=== PATIENT | female | born 1965 | race Hispanic/Latino ===

== ENCOUNTER 2016-06-03 20:32 | Emergency (ER) | payer OTHER ==
[~2016-06-03] VITALS: Ht 152.4 cm; Wt 81.6 kg
[~2016-06-03 20:32] MED LIST: ADVAIR 250-501 EACH INH; ANUSOL-HC30 GM TOP; AQUAPHOR396 GM TOP; COLACE100 M1 PO; COMBIVENT RESPIM4 GM INH; HYDROCORTISONE25 M2 RC; KEFLEX500 M1 PO; LOPERAMIDE2 M2 PO; MAGNESIUM OXID400 M1 PO; METFORMIN HCL500 M3 PO; NICOTINE LOZENGE2 MG PO; OXYCODONE HCL5 M1 PO; PERCOCET 5-3251 EACH PO; PHENAZOPYRIDIN200 M3 PO; PREDNISONE10 M2 PO; PROAIR HFA8.5 GM INH; SENNA8.6 M3 PO; SILVADENE20 GM TOP; SPIRIVA18 MCG INH
[2016-06-03 20:35] VITALS: BP 126/79
--- NOTE | 2016-06-03 20:40 | ED DYSPNEA/ASTHMA COMPLAINT ---
History of Present Illness General Chief Complaint: Dyspnea (COPD, CHF, Other) Stated Complaint: "DIFF.BREATHING, HX ASTHMA, SPO2 98%" Source: patient, family Exam Limitations: no limitations Vital Signs & Intake/Output Vital Signs & Intake/Output Vital Signs Date Time Temp Pulse Resp B/P Pulse O2 O2 Flow FiO2 Ox Delivery Rate 06/03 2034 96.1 87 18 126/79 98 Room Air ED Intake and Output 06/04 0000 06/03 1200 Intake Total Output Total Balance Patient 180 lb Weight Allergies Coded Allergies: No Known Allergies (07/31/15) NO ALLERGIES PER [facility] IN [facility] AT 0759 ON 07/31/15 ([facility]) Reconcile Medications Albuterol Sulfate (Proair Hfa) 8.5 GM HFA.AER.AD 2 PUF INH Q4-6 PRN PRN RESPIRATORY (Reported) Albuterol Sulfate (Proventil Hfa) 90 MCG HFA.AER.AD 2 PUF INH Q4 asthma/wheeze Amoxicillin/Potassium Clav (Augmentin 875-125 Tablet) 875 MG-125 MG TABLET 1 TAB PO BID bronchitis Ipratropium/Albuterol Sulfate (Combivent Respimat Inhal [place]) 4 GM MIST.INHAL 1 Actuation INH Q6 COPD Prednisone 50 MG TABLET 1 TAB PO DAILY asthma, bronchitis Tiotropium [place] (Spiriva) 18 MCG CAP.W.DEV 1 CAP INH DAILY BREATHING PROBLEMS (Reported) Triage Nurses Notes Reviewed? yes Onset: Gradual Duration: day(s): Timing: recent history Severity: moderate Activities at Onset: cigarette smoking Prior Episodes/Possible Cause: occasional episodes Modifying Factors: Improves With: other (improved w/ albuterol). Associated Symptoms: cough, wheezing HPI: 50 yo woman h/o smoking and asthma presents with 1 day history of cough wheezing or phlegm sinus congestion. She has no fever chills chest pain shortness of breath. She has been taking albuterol puffers with only moderate improvement. She notes that this evening the wheezing got worse. She came in for further evaluation. Past History Travel History Traveled to [place] past 21 day No Medical History Any Pertinent Medical History? 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 No Review of Systems Review of Systems Constitutional: Reports: no symptoms. EENTM: Reports: no symptoms. Respiratory: Reports: no symptoms. Cardiovascular: Reports: no symptoms. GI: Reports: no symptoms. Genitourinary: Reports: no symptoms. Musculoskeletal: Reports: no symptoms. Skin: Reports: no symptoms. Neurological/Psychological: Reports: no symptoms. Hematologic/Endocrine: Reports: no symptoms. Immunologic/Allergic: Reports: no symptoms. All Other Systems: Reviewed and Negative Physical Exam Physical Exam General Appearance: well developed/nourished, alert, awake, comfortable, mild distress Head: atraumatic, normal appearance Eyes: Bilateral: normal appearance. Ears, Nose, Throat: normal pharynx, normal ENT inspection Neck: normal inspection, supple, full range of motion Respiratory: wheezing Cardiovascular: regular rate/rhythm Gastrointestinal: normal bowel sounds, soft, non-tender Extremities: normal inspection, normal capillary refill, normal range of motion Neurologic/Psych: no motor/sensory deficits, awake, alert, oriented x 3 Skin: intact, normal color, warm/dry Core Measures ACS in differential dx? No Severe Sepsis Present: No Septic Shock Present: No Progress Differential Diagnosis: asthma, bronchitis, COPD Plan of Care: Patient given Augmentin, Decadron, DuoNeb. Afterwards, she felt better. Her lung exam is much improved with nearly clear lungs. I prescribed her Augmentin, prednisone for 5 days, and renewed her albuterol inhaler. Of note, upon inspection of her albuterol inhaler, it appears to be nearly empty. Initial ED EKG: none Departure Departure Disposition: HOME OR SELF CARE Condition: Stable Clinical Impression Primary Impression: Bronchitis Secondary Impressions: Bronchospasm Referrals: PATIENT HAS NO PRIMARY CARE DR (PCP/Family) Departure Forms: Customer Survey General Discharge Information Prescriptions: Current Visit Scripts Prednisone 1 TAB PO DAILY #5 TAB Amoxicillin/Potassium Clav (Augmentin 875-125 Tablet) 1 TAB PO BID #20 TAB Albuterol Sulfate (Proventil Hfa) 2 PUF INH Q4 #1 INHAL Ref 1 Critical Care Note Critical Care Note Critical Care Time: non-applicable
[2016-06-03] MEDS ORDERED: PROVENTIL HFA6.7 GM INH (21:47)
[2016-06-03] MEDS ORDERED: PREDNISONE50 M1 PO (21:47)
[2016-06-03] MEDS ORDERED: AUGMENTIN 875-1 EACH PO (21:47)
--- NOTE | 2016-06-03 21:51 | RADIOLOGY REPORT ---
EXAMINATION: XR CHEST CLINICAL INFORMATION: Dyspnea. COMPARISON: CTA chest 07/31/2015. TECHNIQUE: PA and lateral views of the chest were obtained. FINDINGS: The lungs are well-expanded and clear without focal airspace consolidation. No pleural effusions or pneumothoraces are identified. Cardiomediastinal contours are within normal limits. Soft tissues are unremarkable. No acute osseous abnormality is identified. IMPRESSION: No acute cardiopulmonary abnormality.
== END 2016-06-03 22:20 ==
LOC: ERH 20:32
DX: J40 Bronchitis, not specified as acute or chronic (principal); F17.210 Nicotine dependence, cigarettes, uncomplicated
CPT/HCPCS: 1263; J3490

== ENCOUNTER 2016-09-05 23:11 | Emergency (ER) | payer OTHER ==
[~2016-09-05] VITALS: Ht 149.9 cm; Wt 79.8 kg
[~2016-09-05 23:11] MED LIST changes: +AUGMENTIN 875-1 EACH PO; +PREDNISONE50 M1 PO; +PROVENTIL HFA6.7 GM INH
--- NOTE | 2016-09-05 23:59 | ED GENERAL ADULT ---
See Addendum History of Present Illness General Chief Complaint: Headache Stated Complaint: LEIVA S/P FALL DENIES LOC Source: patient Exam Limitations: no limitations Vital Signs & Intake/Output Vital Signs & Intake/Output Vital Signs Date Time Temp Pulse Resp B/P B/P Pulse O2 O2 Flow FiO2 Mean Ox Delivery Rate 09/05 2347 Room Air 09/05 2338 98.2 88 18 132/88 96 Room Air ED Intake and Output 09/06 0000 09/05 1200 Intake Total 0 Output Total Balance 0 Intake, Oral 0 Patient 176 lb Weight Allergies Coded Allergies: No Known Allergies (07/31/15) NO ALLERGIES PER [facility] IN [facility] AT 0759 ON 07/31/15 ([facility]) Reconcile Medications Albuterol Sulfate (Proair Hfa) 8.5 GM HFA.AER.AD 2 PUF INH Q4-6 PRN PRN RESPIRATORY (Reported) Albuterol Sulfate (Proventil Hfa) 90 MCG HFA.AER.AD 2 PUF INH Q4 asthma/wheeze Amoxicillin/Potassium Clav (Augmentin 875-125 Tablet) 875 MG-125 MG TABLET 1 TAB PO BID bronchitis Ipratropium/Albuterol Sulfate (Combivent Respimat Inhal [place]) 4 GM MIST.INHAL 1 Actuation INH Q6 COPD Prednisone 50 MG TABLET 1 TAB PO DAILY asthma, bronchitis Tiotropium [place] (Spiriva) 18 MCG CAP.W.DEV 1 CAP INH DAILY BREATHING PROBLEMS (Reported) Triage Note: PT TO ED C/O HEADACHE, BACK PAIN, LEFT LEG PAIN S/P TRIP 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 FELL BACKWARDS, HITTING HEAD. "SAW STARS" FELT DIZZY WHEN SHE FIRST STOOD UP, DENIES AT THIS TIME. +NAUSEA DENIES BLOOD THINNERS Triage Nurses Notes Reviewed? yes HPI: 51-year-old female with a past medical history of asthma, diabetes, hyperlipidemia, ovarian cancer presenting with posterior headache, neck pain, back pain, lightheadedness, nausea status post mechanical fall about 3.5 hours prior to arrival. Patient was walking outside and slipped and fell backwards, striking posterior head and neck and back against pavement. Denies loss of consciousness, vomiting, visual changes, confusion, altered mental status. No anticoagulation. (KARON GARCIA,EUGENIO) Past History Travel History Traveled to [place] past 21 day No Medical History Any Pertinent Medical History? 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 No (EUGENIO BRANTLEY PA-C) Review of Systems Review of Systems Constitutional: Reports: no symptoms. Respiratory: Reports: no symptoms. Cardiovascular: Reports: no symptoms. GI: Reports: nausea. Denies: abdominal pain, diarrhea, vomiting. Musculoskeletal: Reports: back pain, neck pain. Neurological/Psychological: Reports: headache, other (light headedness). Denies: confusion, numbness, tingling, tremors. (EUGENIO BRANTLEY PA-C) Physical Exam Physical Exam General Appearance: well developed/nourished, no apparent distress Head: atraumatic, normal appearance Ears, Nose, Throat: normal ENT inspection Neck: tender midline Respiratory: normal breath sounds, lungs clear Cardiovascular: regular rate/rhythm Gastrointestinal: soft, non-tender Back: normal inspection, normal range of motion, no vertebral tenderness Extremities: normal inspection, normal range of motion Neurologic/Psych: no motor/sensory deficits, awake, alert, oriented x 3, normal gait, supervisor rides II-XII nml as tested Core Measures ACS in differential dx? No CVA/TIA Diagnosis: No Severe Sepsis Present: No Septic Shock Present: No (EUGENIO BRANTLEY PA-C) Progress Differential Diagnoses I considered the following diagnoses in my evaluation of the patient: [Contusion versus epidural hematoma versus subdural hematoma versus subarachnoid hemorrhage versus cranial fracture versus cervical contusion versus cervical sprain versus cervical fracture.] Plan of Care: Orders Procedure Date/time Status CT HEAD WO IV CONTRAST 09/[address] CERV SPINE WO IV CONTRAST 09/[address] head and cervical spine pending. Patient signed out to . (EUGENIO BRANTLEY PA-C) Initial ED EKG: none (KARON GARCIA,EUGENIO) Departure Departure Disposition: HOME OR SELF CARE Condition: Stable Clinical Impression Primary Impression: Head contusion Secondary Impressions: Cervical strain Referrals: PATIENT HAS NO PRIMARY CARE DR (PCP/Family) Departure Forms: Customer Survey General Discharge Information (EUGENIO BRANTLEY PA-C) PA/ARBORICULTURE TEACHER Co-Sign Statement Statement: ED Attending supervision documentation- [] I saw and evaluated the patient. I have also reviewed all the pertinent lab results and diagnostic results. I agree with the findings and the plan of care as documented in the PA's/ARBORICULTURE TEACHER's documentation. [x] I have reviewed the ED Record and agree with the PA's/ARBORICULTURE TEACHER's documentation. [] Additions or exceptions (if any) to the PAs/ARBORICULTURE TEACHER's note and plan are summarized below: [] (WENDY BURCH,TRESA Bernal) Critical Care Note Critical Care Note Critical Care Time: non-applicable (EUGENIO BRANTLEY PA-C)
--- NOTE | 2016-09-06 01:02 | CT SCAN REPORT ---
EXAMINATIONS: CT HEAD WITHOUT CONTRAST AND CT CERVICAL SPINE WITHOUT CONTRAST CLINICAL INFORMATION: Headache, lightheadedness. Pain following trauma. COMPARISON: None. TECHNIQUE: Contiguous helical images of the brain were obtained without IV contrast. Contiguous helical images of the cervical spine were obtained without IV contrast. Multiplanar reconstructions were performed. DLP: 983 mGy-cm. FINDINGS: There are no pathologic extra-axial fluid collections. The lateral, third, fourth ventricles are nondilated and concordant with the appearance of the sulci. There is no evidence for acute intraparenchymal hemorrhage or infarct. There is neither mass nor mass effect. There is no shift of midline structures. The paranasal sinuses and mastoid air cells are clear. There are no osseous lesions. The cervical vertebra are in normal alignment. There is multilevel disc height loss within the cervical spine, particularly at C3/C4, C4/C5, C5/C6 and C6/C7. Disc heights and vertebral heights are otherwise well-preserved. There is mild anterior osteophyte formation. There are no fractures. There is no prevertebral soft tissue swelling. There is no cervical lymphadenopathy. The visualized lung apices are clear. IMPRESSION: No evidence for acute intracranial injury. No evidence for acute injury to the cervical spine. Age-appropriate degenerative change to the cervical spine.
[2016-09-06 01:25] VITALS: BP 130/81
== END 2016-09-06 01:26 ==
LOC: ERH 23:11
DX: S16.1XXA Strain of muscle, fascia and tendon at neck level, initial encounter (principal); S00.93XA Contusion of unspecified part of head, initial encounter; W19.XXXA Unspecified fall, initial encounter

== ENCOUNTER 2017-07-15 09:15 | Emergency (ER) | payer OTHER ==
[~2017-07-15] VITALS: Ht 149.9 cm; Wt 127.9 kg
--- NOTE | 2017-07-15 09:38 | ED CARDIAC/CP/PALPITATIONS ---
History of Present Illness General Chief Complaint: Chest Pain Stated Complaint: BIBA CP/SOB Source: patient, family Exam Limitations: language barrier Vital Signs & Intake/Output Vital Signs & Intake/Output Vital Signs Date Time Temp Pulse Resp B/P B/P Pulse O2 O2 Flow FiO2 Mean Ox Delivery Rate 07/15 1449 98.5 94 18 117/57 95 Room Air 07/15 1200 100.0 07/15 1126 100.0 102 20 132/59 94 Room Air Room Air 07/15 1027 101.0 07/15 1000 96 07/15 0947 96 Room Air Room Air 07/15 0938 101.0 126 20 140/67 96 Room Air Room Air Allergies Coded Allergies: No Known Allergies (07/31/15) NO ALLERGIES PER [facility] IN [facility] AT 0759 ON 07/31/15 ([facility]) Reconcile Medications Albuterol Sulfate (Proair Hfa) 8.5 GM HFA.AER.AD 2 PUF INH Q4-6 PRN PRN RESPIRATORY (Reported) Albuterol Sulfate (Proventil Hfa) 90 MCG HFA.AER.AD 2 PUF INH Q4 asthma/wheeze Albuterol Sulfate (Ventolin Hfa) 90 MCG HFA.AER.AD 2 PUF INH Q4-6 PRN PRN SHORTNESS OF BREATH Amoxicillin/Potassium Clav (Augmentin 875-125 Tablet) 875 MG-125 MG TABLET 1 TAB PO BID bronchitis Benzonatate (Tessalon Perle) 100 MG CAPSULE 1 CAP PO TID PRN COUGH Codeine Phosphate/Guaifenesi (Cheratussin AC Syrup) 10 MG-100 MG/5 ML LIQUID 10 ML PO TID PRN COUGH DO NOT OPERATE MOTOR VEHICLES WITH THIS MEDICATION Fluticasone Propionate (Flonase Allergy Relief) 50 MCG/ACTUATION SPRAY.SUSP 2 SPRAY LINH DAILY PRN CONGESTION Ipratropium/Albuterol Sulfate (Combivent Respimat Inhal [place]) 4 GM MIST.INHAL 1 Actuation INH Q6 COPD Oseltamivir Phosphate (Tamiflu) 75 MG CAPSULE 1 CAP PO BID INFLUENZA Prednisone 50 MG TABLET 1 TAB PO DAILY asthma, bronchitis Prednisone 10 MG TABLET 1 TAB PO AD INFLAMMATION Tiotropium [place] (Spiriva) 18 MCG CAP.W.DEV 1 CAP INH DAILY BREATHING PROBLEMS (Reported) Triage Nurses Notes Reviewed? yes Onset: Gradual Duration: getting worse Timing: recent history Location: substernal Radiation: no radiation HPI: Patient is a 52-year-old female with a past medical history of asthma, diabetes, and endometrial cancer 2 years ago where she received chemotherapy radiation therapy currently in remission who is in every day smoker who is history is limited due to patient being primarily German-speaking only however USING the DOLLY and having a conversation over the phone with patient's boyfriend in which there is a 2 day history of chest pain abdominal pain coughing fever chills weakness and nausea. Boyfriend states that he is admitted to [facility] currently with similar complaints (Armando Kirk) Past History Travel History Traveled to [facility] past 21 day No Medical History Any Pertinent Medical History? see below for history Neurological: NONE EENT: NONE Cardiovascular: hyperlipidemia Respiratory: asthma Gastrointestinal: NONE Hepatic: NONE Renal: POSSIBLE INCONTINENCE R/T RADIATION FROM OVARIAN OR URETHRAL CA Musculoskeletal: NONE Psychiatric: NONE Endocrine: diabetes Blood Disorders: NONE Cancer(s): ovarian cancer, ?URETHRAL [place] [employer]/Reproductive: NONE History of MRSA: No History of VRE: No History of CDIFF: No Tetanus Vaccine: 10/24/15 Surgical History Surgical History: non-contributory Psychosocial History What is your primary language German Tobacco Use: Current Daily Use Daily Tobacco Use Amount/Type: => 5 Cigarettes daily ETOH Use: denies use Illicit Drug Use: denies illicit drug use Family History Family History, If Any: Relation not specified for: *No pertinent family history Hx Contributory? No (Armando Kirk) Review of Systems Review of Systems Constitutional: Reports: see HPI, fever. EENTM: Reports: see HPI, nasal congestion. Respiratory: Reports: see HPI, cough, short of breath. Cardiovascular: Reports: see HPI, chest pain. GI: Reports: see HPI, abdominal pain. Genitourinary: Reports: no symptoms. Musculoskeletal: Reports: no symptoms. Skin: Reports: no symptoms. Neurological/Psychological: Reports: no symptoms. Hematologic/Endocrine: Reports: no symptoms. Immunologic/Allergic: Reports: no symptoms. All Other Systems: Reviewed and Negative (Armando Kirk) Physical Exam Physical Exam General Appearance: anxious, mild distress, obese Head: atraumatic Eyes: Bilateral: normal appearance, PERRL, EOMI. Ears, Nose, Throat: normal pharynx, hearing grossly normal, nasal congestion Neck: normal inspection Respiratory: no respiratory distress, rhonchi, wheezing Cardiovascular: tachycardia Peripheral Pulses: 2+ radial (R) Gastrointestinal: soft, tenderness Extremities: normal inspection Neurologic/Psych: no motor/sensory deficits, awake, alert Skin: intact, normal color Core Measures ACS in differential dx? Yes CVA/TIA Diagnosis No Sepsis Present: No Sepsis Focused Exam Completed? No (Landen JAMES,Armando) Progress Differential Diagnosis: AMI, aortic dissection, atrial fibrillation, cholecystitis, CHF/pulm edema, costochondritis, hyperkalemia, hypovolemia, hyperthyroid, hyperventilation, intracranial hemorrhage, musculoskeletal pain, myocarditis, pancreatitis, pericarditis, pneumonia, pneumothorax, PSVT, pulmonary embolism, PUD/GERD, PVCs/PACs, respiratory failure, sepsis, unstable angina, V-fib/V-Tach, WPW syndrome Plan of Care: Orders Procedure Date/time Status TROPONIN LEVEL 07/15 1415 Complete EKG 07/15 1415 Active LACTIC ACID 07/15 1258 Active LIPASE 07/15 1021 Complete LACTIC ACID 07/15 1021 Complete AEROSOL (GEN) 07/15 1004 Complete RAPID VIRAL INFLUENZA A 07/15 0947 Complete LOWER RESPIRATORY CULTURE 07/15 0947 Active BLOOD CULTURE 07/15 0947 Active VIRAL CULTURE 07/15 0947 Active URINALYSIS 07/15 0947 Active Telemetry/Cosmetologist 07/15 0940 Active TROPONIN LEVEL 07/15 0940 Complete D-DIMER 07/15 0940 Complete COMPREHENSIVE METABOLIC PANEL 07/15 0940 Complete CBC WITHOUT DIFFERENTIAL 07/15 0940 Complete EKG 07/15 0920 Active Laboratory Tests 07/15/17 1452: Troponin I < 0.01 07/15/17 1021: Lactic Acid Cancelled 07/15/17 1021: Anion Gap 16, Estimated GFR > 60, BUN/Creatinine Ratio 18.3, Glucose 281 H, Lactic Acid 1.7, Calcium 9.6, Total Bilirubin 0.5, AST 24, ALT 47, Alkaline Phosphatase 110, Troponin I < 0.01, Total Protein 7.4, Albumin 4.2, Globulin 3.2 , Albumin/Globulin Ratio 1.3, Lipase 92, D-Dimer High Sensitivty < 200, CBC w Diff NO MAN DIFF REQ, RBC 5.54 H, MCV 84.0, MCH 27.4, MCHC 32.6 L, RDW 14.3, MPV 8.6, Gran % 81.4 H, Lymphocytes % 12.5 L, Monocytes % 5.2, Eosinophils % 0.5, Basophils % 0.4, Absolute Granulocytes 5.5, Absolute Lymphocytes 0.8 L, Absolute Monocytes 0.4, Absolute Eosinophils 0, Absolute Basophils 0 07/15/17 0947: Lipase Cancelled, Virus Culture Pending Microbiology 07/15 1055 BLOOD: Blood Culture - RECD 07/15 1021 NASOPHARYN: Influenza Virus A & B Rapid Smear - COMP INFLUENZA TYPE A 07/15 1021 BLOOD: Blood Culture - RECD 07/15 0947 LOWER RESP: Respiratory Culture - ORD 07/15 946 LOWER RESP: Gram Stain - ORD Differential diagnoses include cholecystitis cholangitis appendicitis diverticulitis patient was positive for influenza discussed results with patient , I been conversing with patient's boyfriend who is admitted to the [facility] on the phone where she is being translated the positive results patient currently is resting comfortably at bedside after nebulizer and fluids and IV Tylenol were administered, CT scan of abdomen and currently is pending. CT scan and chest x-ray were unremarkable patient will receive second set troponin EKG, patient has been reevaluated on multiple occasions and resting comfortably at bedside, patient will be treated for concerns of upper respiratory infection influenza and most likely chest pain is pleuritic in nature Patient had second set troponin EKG there were unremarkable Patient was strongly advised to follow up and establish [facility] for a primary care doctor. Upon discharge patient looks well no apparent distress and states "I am hungry" Diagnostic Imaging: Viewed by Me: Radiology Read, CT Scan. Radiology Impression: no acute abnormality Initial ED EKG: SINUS TACHYCARDIA 118 BPM Prior EKG: unchanged Comments: PATIENT: NIC TREVIÑO PRESENT AGE: 52 PATIENT ACCOUNT NO: [id number] : 63 LOCATION: [facility] ORDERING PHYSICIAN: Armando JAMES SERVICE DATE: 07/15/17 EXAM TYPE: CAT - CT ABD & PELVIS W IV CONTRAST EXAMINATION: CT ABDOMEN AND PELVIS WITH CONTRAST CLINICAL INFORMATION: Abdominal pain. COMPARISON: CTA of the abdomen and pelvis July 2015. TECHNIQUE: Multidetector volumetric imaging was performed of the abdomen and pelvis following IV administration of 80 mL of Optiray 320 intravenous contrast. Sagittal and coronal reformatted images were obtained on the technologist's workstation. DLP: 504 mGy-cm FINDINGS: LUNG BASES: The visualized lung bases are unremarkable. LIVER, GALLBLADDER, AND BILIARY TREE: The liver is low in attenuation suggestive of fatty infiltration. No focal liver lesion is seen. PANCREAS: Unremarkable. SPLEEN: Unremarkable. ADRENAL GLANDS: Unremarkable. KIDNEYS AND URETERS: There is a 1 cm cyst seen in the lower pole of the right kidney. The kidneys are otherwise unremarkable. BLADDER: Unremarkable. GASTROINTESTINAL TRACT: The small and large bowel are unremarkable. The appendix is unremarkable. ABDOMINAL WALL: No significant hernia is appreciated. LYMPH NODES: There are no enlarged lymph nodes. There is no ascites. VASCULAR: There is evidence of atherosclerotic disease. The abdominal aorta is normal in caliber. PELVIC VISCERA: The uterus and adnexa are unremarkable. OSSEOUS STRUCTURES: There is mild curvature of the lower lumbar spine to the right. There is degenerative disc disease at L4-L5. There is mild anterior subluxation of L4 with respect to L5 probably related to facet arthritis. This is similar to previous exam. IMPRESSION: Fatty liver. Small right renal cyst. DICTATED BY: Pennie King MD. DATE/TIME DICTATED:07/15/171430 MILK INSPECTOR:RAD.GOLDEN DATE/TIME TRANSCRIBED:07/15/17 PATIENT: NIC TREVIÑO PRESENT AGE: 52 PATIENT ACCOUNT NO: [id number] : 63 LOCATION: [facility] ORDERING PHYSICIAN: Armando JAMES SERVICE DATE: 07/15/17 EXAM TYPE: RAD - XRY-CHEST XRAY, TWO VIEWS EXAMINATION: XR CHEST CLINICAL INFORMATION: Chest pain and cough COMPARISON: Previous chest x-ray May 2016 and chest CTA July 2015 TECHNIQUE: 2 views of the chest were obtained. FINDINGS: The cardiac and mediastinal contours are stable. There is linear scarring or subsegmental atelectasis in the left upper lobe. The lungs are otherwise clear. There is no pleural effusion or pneumothorax. There are degenerative changes of the spine. IMPRESSION: Linear scarring or subsegmental atelectasis in the left upper lobe. Otherwise unremarkable exam. DICTATED BY: Pennie King MD DATE/TIME DICTATED:07/15/171211 MILK INSPECTOR:RAD.GOLDEN DATE/TIME TRANSCRIBED:07/15/17 (Landen JAMES,Armando) Departure Departure Disposition: HOME OR SELF CARE Condition: Stable Clinical Impression Primary Impression: Influenza Secondary Impressions: Chest pain Referrals: Patient Has No Primary Care Dr (PCP/Family) Additional Instructions: As discussed begin the prescription of Tamiflu for the full course, Tessalon Perles for cough, Flonase for congestion and prednisone for your symptoms, if symptoms worsen return to emergency room, BEGIN [id number] Motrin or Tylenol for fevers and pain, YOU will receive a phone call on Monday to establish a doctor appointment, please go to this appointment. Departure Forms: Customer Survey General Discharge Information Prescriptions: Current Visit Scripts Oseltamivir Phosphate (Tamiflu) 1 CAP PO BID #10 CAP Prednisone 1 TAB PO AD #19 TAB Benzonatate (Tessalon Perle) 1 CAP PO TID PRN COUGH #21 CAP Codeine Phosphate/Guaifenesi (Cheratussin AC Syrup) 10 ML PO TID PRN COUGH #100 ML DO NOT OPERATE MOTOR VEHICLES WITH THIS MEDICATION Albuterol Sulfate (Ventolin Hfa) 2 PUF INH Q4-6 PRN PRN SHORTNESS OF BREATH #1 INHAL Fluticasone Propionate (Flonase Allergy Relief) 2 SPRAY LINH DAILY PRN CONGESTION #1 BOT (Armando Kirk) PA/ASSEMBLER CONVERTIBLE TOP Co-Sign Statement Statement: ED Attending supervision documentation- I saw and evaluated the patient. I have also reviewed all the pertinent lab results and diagnostic results. I agree with the findings and the plan of care as documented in the PA's/ASSEMBLER CONVERTIBLE TOP's documentation. x I have reviewed the ED Record and agree with the PA's/ASSEMBLER CONVERTIBLE TOP's documentation. [] Additions or exceptions (if any) to the PAs/ASSEMBLER CONVERTIBLE TOP's note and plan are summarized below: [] (Aditya BURCH,Clyde) Critical Care Note Critical Care Note Critical Care Time: non-applicable (Armando Kirk)
[2017-07-15 10:37] LABS: ABSOLUTE BASOPHIL COUNT 0 /CUMM (0.0-0.2); ABSOLUTE EOSINOPHIL COUNT 0 /CUMM (0.0-0.7); ABSOLUTE GRANULOCYTE CT 5.5 /CUMM (1.4-6.5); ABSOLUTE LYMPH COUNT 0.8 /CUMM (1.2-3.4); ABSOLUTE MONOCYTE COUNT 0.4 /CUMM (0.10-0.60); BASOPHIL % 0.4 % (0.0-2.0); EOSINOPHIL % 0.5 % (0-5); GRANULOCYTE % 81.4 % (42.2-75.2); HEMATOCRIT 46.5 % (37-47); MEAN CORPUSCULAR HGB 27.4 PG (27.0-31.0); MEAN CORPUSCULAR HGB CONC 32.6 G/DL (33.0-37.0); MEAN PLATELET VOLUME 8.6 FL (7.4-10.4); PLATELET COUNT 328 /CUMM (130-400); RBC DISTRIBUTION WIDTH 14.3 % (11.5-14.5); RED BLOOD CELL CT 5.54 /CUMM (4.20-5.40); WHITE BLOOD CELL COUNT 6.8 /CUMM (4.8-10.8)
--- NOTE | 2017-07-15 12:17 | RADIOLOGY REPORT ---
EXAMINATION: XR CHEST CLINICAL INFORMATION: Chest pain and cough COMPARISON: Previous chest x-ray May 2016 and chest CTA July 2015 TECHNIQUE: 2 views of the chest were obtained. FINDINGS: The cardiac and mediastinal contours are stable. There is linear scarring or subsegmental atelectasis in the left upper lobe. The lungs are otherwise clear. There is no pleural effusion or pneumothorax. There are degenerative changes of the spine. IMPRESSION: Linear scarring or subsegmental atelectasis in the left upper lobe. Otherwise unremarkable exam.
--- NOTE | 2017-07-15 15:06 | CT SCAN REPORT ---
EXAMINATION: CT ABDOMEN AND PELVIS WITH CONTRAST CLINICAL INFORMATION: Abdominal pain. COMPARISON: CTA of the abdomen and pelvis July 2015. TECHNIQUE: Multidetector volumetric imaging was performed of the abdomen and pelvis following IV administration of 80 mL of Optiray 320 intravenous contrast. Sagittal and coronal reformatted images were obtained on the technologist's workstation. DLP: 504 mGy-cm FINDINGS: LUNG BASES: The visualized lung bases are unremarkable. LIVER, GALLBLADDER, AND BILIARY TREE: The liver is low in attenuation suggestive of fatty infiltration. No focal liver lesion is seen. PANCREAS: Unremarkable. SPLEEN: Unremarkable. ADRENAL GLANDS: Unremarkable. KIDNEYS AND URETERS: There is a 1 cm cyst seen in the lower pole of the right kidney. The kidneys are otherwise unremarkable. BLADDER: Unremarkable. GASTROINTESTINAL TRACT: The small and large bowel are unremarkable. The appendix is unremarkable. ABDOMINAL WALL: No significant hernia is appreciated. LYMPH NODES: There are no enlarged lymph nodes. There is no ascites. VASCULAR: There is evidence of atherosclerotic disease. The abdominal aorta is normal in caliber. PELVIC VISCERA: The uterus and adnexa are unremarkable. OSSEOUS STRUCTURES: There is mild curvature of the lower lumbar spine to the right. There is degenerative disc disease at L4-L5. There is mild anterior subluxation of L4 with respect to L5 probably related to facet arthritis. This is similar to previous exam. IMPRESSION: Fatty liver. Small right renal cyst.
[2017-07-15] MEDS ORDERED: FLONASE ALLERG9.9 ML NAS (15:10)
[2017-07-15] MEDS ORDERED: VENTOLIN HFA18 GM INH (15:10)
[2017-07-15] MEDS ORDERED: CHERATUSSIN AC118 M1 PO (15:10)
[2017-07-15] MEDS ORDERED: TAMIFLU75 M1 PO (15:10)
[2017-07-15] MEDS ORDERED: PREDNISONE10 M2 PO (15:10)
[2017-07-15] MEDS ORDERED: TESSALON PERLE100 M1 PO (15:10)
[2017-07-15 16:23] VITALS: BP 132/62
== END 2017-07-15 16:29 ==
LOC: ERH 09:15
PROVIDERS: Physician Assistant
DX: J11.1 Influenza due to unidentified influenza virus with other respiratory manifestations (principal); R07.9 Chest pain, unspecified; F17.210 Nicotine dependence, cigarettes, uncomplicated
CPT/HCPCS: 1263; 71046; 74177; 87040; 87070; 87804; 87804-59; 93005; 93010; 96361; 96374; 96375; J0131; J2930